=== PATIENT | female | born 1950 | race Caucasian/White ===

== ENCOUNTER 2020-09-07 15:38 | Emergency (ER) | payer BC, MEDICARE ==
[2020-09-07] MEDS ORDERED: Bupivacaine 0.5% 30 ML SDV INJECT STA (15:40)
[2020-09-07] MEDS ORDERED: Lidocaine 1% with EPINEPHrine 1:100,000 20 ML MDV INFILT STA (15:40)
[2020-09-07] MEDS ORDERED: Take Home: Cephalexin 500 MG Cap, 4 Cap Pack PO ONE (16:27)
[2020-09-07] MEDS ORDERED: Cephalexin 500 MG Cap PO ONE (16:27)
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
== END 2020-09-07 16:50 | disposition home or self-care (01) ==
LOC: VM.ED 15:38
DX: S81.812A Laceration without foreign body, left lower leg, initial encounter (principal); Z88.2 Allergy status to sulfonamides; V49.9XXA Car occupant (driver) (passenger) injured in unspecified traffic accident, initial encounter
CPT/HCPCS: 12004; 12034; 99283; A9270; J3490